=== PATIENT | male | born 2000 | race Caucasian/White ===

== ENCOUNTER 2021-07-23 19:55 | Emergency (ER) ==
[~2021-07-23] VITALS: Ht 170.2 cm; Wt 69.7 kg
[2021-07-23 19:55] VITALS: BP 136/82
--- NOTE | 2021-07-24 07:51 | ECGEPIP ---
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
[2021-07-24] MEDS ORDERED: NAPR-837 PO (10:05)
== END 2021-07-24 00:38 | disposition left against medical advice (07) ==
LOC: M ED 19:55
DX: Z53.21 Procedure and treatment not carried out due to patient leaving prior to being seen by health care provider (principal)

== ENCOUNTER 2021-07-24 07:37 | Emergency (ER) | payer OTHER ==
[~2021-07-24] VITALS: Ht 170.2 cm; Wt 68.9 kg
--- NOTE | 2021-07-24 08:01 | ECGEPIP ---
[facility] - ED Test Date: 2021-07-24 Pat Name: ARIES DOMINIQUE Department: Room: - Gender: Male [place] [employer] Operator: KASSIE : 2000 Requested By: MARIA TERESA Haney PA-C Order Number: [id number] Reading MD: Edyta Garza Measurements Intervals [place] Rate: 73 P: 73 MA: 134 QRS: 80 QRSD: 94 T: 53 QT: 370 QTc: 407 Interpretive Statements Normal sinus rhythm with sinus arrhythmia similar 07/23/21 Electronically Signed on 07-24-2021 8:01:07 EDT by Edyta Garza
[2021-07-24] MEDS ORDERED: NS 1,000 ML IV ONE (08:40)
[2021-07-24] MEDS ORDERED: KETOROLAC 30 MG/ML 1ML VIAL IV ONE (08:40)
[2021-07-24 08:55] LABS: RSV AMPLIFICATION NEGATIVE (NEGATIVE)
--- NOTE | 2021-07-24 09:03 | REP ---
INDICATION: chest pain. COMPARISON: No comparison chest x-ray TECHNIQUE: Portable upright AP chest radiograph. FINDINGS: The lungs are well inflated and free of infiltrate. Pleural angles are sharp. Heart size is normal. Pulmonary vasculature is not increased. IMPRESSION: No active disease. <Electronically signed by Vidal Cooper > 07/24/21 [id number]
[2021-07-24 09:18] LABS: BASO % 0.7 % (0.0-1.0); EOS # 0.5 10^3/uL (0.0-0.5); EOS % 8.2 % (0.0-3.0); HEMATOCRIT 43.9 % (42.0-52.0); LYMPH # 1.4 10^3/uL (1.5-5.0); LYMPH % 24.7 % (24.0-44.0); MEAN CORPUSCULAR HEMOGLOBIN 29.4 pg (27.0-33.0); MEAN CORPUSCULAR HGB CONC 34.2 g/dl (32.0-36.5); MEAN CORPUSCULAR VOLUME 85.9 fl (80.0-96.0); MONO # 0.3 10^3/uL (0.0-0.8); MONO % 5.7 % (2.0-8.0); NEUTROPHILS # 3.5 10^3/uL (1.5-8.5); PLATELET COUNT, AUTOMATED 234 10^3/uL (150-450); RED BLOOD COUNT 5.11 10^6/uL (4.30-6.10); WHITE BLOOD COUNT 5.8 10^3/uL (4.0-10.0)
[2021-07-24 09:41] LABS: CK-MB VALUE MASS < 1.0 NG/ML (<3.6); CPK CREATINE PHOSPHOKINASE 70 U/L (39-308); MB/CK RELATIVE INDEX 1.43 (< OR =4); TROPONIN I < 0.02 NG/ML (< 0.10)
[2021-07-24] MEDS ORDERED: NAPR-837 PO (10:05)
[2021-07-24 10:17] VITALS: BP 125/79
== END 2021-07-24 10:24 | disposition home or self-care (01) ==
LOC: M ED 07:37
DX: R07.89 Other chest pain (principal)
CPT/HCPCS: 71045; 80047; 82550; 82553; 84484; 85025; 87631; 93005; 96361; 96374; 99284; J1885